=== PATIENT | male | born 1980 | race Caucasian/White ===

== ENCOUNTER 2016-08-11 09:32 | Emergency (ER) | payer SELFPAY ==
[2016-08-11 09:38] VITALS: BP 151/77
--- NOTE | 2016-08-11 11:14 | UC ---
Rito De Guzman Benjamin, scribed for Joi Andre DO on 08/11/16 at 1004 . Abdominal Pain Male HPI - HPI Summary HPI Summary: 35yo male c/o abdominal pain that started umbilical area than radiated to RLQ for 2 days. Pt states that toad bump worsens and cold milk and lying down helps his pain. Pain fluctuates btw 3 and 8 at times. Now at 1/10 pain supine, 3/10 standing. Pt vomited x6 yesterday, without any blood or bile. No bm for couple days. Also reports slight SOB. Negative PMHx and FHx. - History of Current Complaint Chief Complaint: UCAbdominalPain Stated Complaint: ABDOMINAL PAIN Hx Obtained From: Patient Onset/Duration: Sudden Onset, Lasting Days, Still Present Timing: Constant Severity Initially: Moderate Severity Currently: Mild Pain Intensity: 1 Pain Scale Used: 0-10 Numeric Location: Discrete At: RLQ Radiates: No Character: Sharp Aggravating Factor(s):: Movement - road bumps Alleviating Factor(s): Position - lying down Associated Signs And Symptoms: Positive: Constipation, Nausea, Vomiting. Negative: Diaphoresis, Fever, Dizzy, Back Pain, Blood in Stool, Urinary Symptoms - Allergies/Home Medications Allergies/Adverse Reactions: Allergies Allergy/AdvReac Type Severity Reaction Status Date / Time No Known Allergies Allergy Verified 08/11/16 09:38 Home Medications: Home Medications NK [No Home Medications Reported] 08/11/16 [History Confirmed 08/11/16] PMH/Surg Hx/FS Hx/Imm Hx Previously Healthy: Yes - Surgical History Surgical History: None - Family History Known Family History: Positive: Other - NONCONTRIBUTORY Negative: Cardiac Disease, Hypertension, Diabetes - Social History Occupation: Employed Full-time Lives: With Family Alcohol Use: Rare Substance Use Type: None Smoking Status (MU): Current Some Day Smoker Type: Smokeless Tobacco Cessation Counseling: Patient Advised to Stop - Immunization History Most Recent Influenza Vaccination: NEVER Most Recent Tetanus Shot: UTD Review of Systems Constitutional: Negative Skin: Negative Eyes: Negative ENT: Negative Respiratory: Negative Cardiovascular: Negative Gastrointestinal: Abdominal Pain - RLQ, Vomiting Genitourinary: Negative Motor: Negative Neurovascular: Negative Musculoskeletal: Negative Neurological: Negative Psychological: Negative All Other Systems Reviewed And Are Negative: Yes Physical Exam Triage Information Reviewed: Yes Appearance: Well-Appearing, Well-Nourished, Pain Distress - min Vital Signs: Initial Vital Signs Temp 97.2 F 08/11/16 09:34 Pulse 88 08/11/16 09:34 Resp 16 08/11/16 09:34 BP 151/77 08/11/16 09:34 Pulse Ox 99 08/11/16 09:34 Vital Signs Reviewed: Yes Eyes: Positive: Conjunctiva Clear. Negative: Discharge ENT: Positive: Hearing grossly normal. Negative: Muffled/hoarse voice Neck exam: Normal Neck: Positive: Supple Respiratory: Positive: Lungs clear, Normal breath sounds, No respiratory distress, No accessory muscle use Cardiovascular: Positive: RRR, No Murmur Abdomen Description: Positive: No Organomegaly, Soft, Guarding, McBurney's Point Tenderness - mild, Peritoneal Signs, Other: - rebound. Negative: CVA Tenderness (R), CVA Tenderness (L), Distended Bowel Sounds: Positive: Present Musculoskeletal: Positive: Strength Intact, ROM Intact Neurological: Positive: Alert, Muscle Tone Normal Psychological: Positive: Age Appropriate Behavior Skin Exam: Normal, Other - warm, dry, normal color Abd Pain Male Course/Dx - Course Course Of Treatment: Recommended transfer via ambulance, and after explaining the potential risks, pt still desires to transfer via private car AMA, understanding the risks. - Differential Dx/Clinical Impression Differential Diagnosis/HQI/PQRI: Appendicitis, Constipation, Gall Bladder Disease, Urinary Tract Infection Provider Diagnoses: abd pain - r/o appy Discharge - Discharge Plan Condition: Stable Disposition: AGAINST MEDICAL ADVICE Referrals: Kamlesh Kennedy MD [Primary Care Provider] - The documentation as recorded by the Rito medina Benjamin accurately reflects the service I personally performed and the decisions made by , Joi Andre DO.
== END 2016-08-11 10:09 | disposition left against medical advice (07) ==
LOC: UCEAST 09:32
DX: R10.31 Right lower quadrant pain (principal); Z72.0 Tobacco use
CPT/HCPCS: 99212; G0463

== ENCOUNTER 2016-08-11 10:29 | Day surgery (SDC) | payer SELFPAY ==
[2016-08-11] MEDS ORDERED: NS 0.9% 1000 ML* 1,000 ML IV ONE (10:57)
[2016-08-11 11:25] LABS: Hematocrit 49 % (42-52); Hemoglobin 16.4 g/dl (14.0-18.0); Mean Corpuscular HGB Conc 34 g/dl (31-36); Mean Corpuscular Hemoglobin 28 pg (27-31); Mean Corpuscular Volume 82 fL (80-94); Mean Platelet Volume 8 um3 (7.4-10.4); Red Blood Count 5.89 10^6/ul (4.0-5.4); Red Cell Distribution Width 14 % (10.5-15)
[2016-08-11 11:29] LABS: Add Diff/Slide Review? Slide Review Added; Comments Flag Yes
[2016-08-11 11:41] LABS: ALT 22 U/L (7-52); AST 16 U/L (13-39); Albumin 4.7 g/dL (3.2-5.2); Alkaline Phosphatase 65 U/L (34-104); Amylase 31 U/L (29-103); Anion Gap 8 mmol/L (2-11); BUN/Creatinine Ratio 11.4 (8-20); Blood Urea Nitrogen 10 mg/dL (6-24); C Reactive Protein 50.71 mg/L (< 5.00); CO2 Carbon Dioxide 28 mmol/L (22-32); Calcium 9.9 mg/dL (8.6-10.3); Chloride 98 mmol/L (101-111); EGFR African American 127.5 (>60); EGFR Non-African American 99.1 (>60); Globulin 3.7 g/dL (2-4); Glucose 109 mg/dL (70-100); Lipase < 10 U/L (11.0-82.0); Potassium 3.7 mmol/L (3.5-5.0); Sodium 134 mmol/L (133-145); Total Protein 8.4 g/dL (6.4-8.9)
[2016-08-11] MEDS ORDERED: Iohexol 300* (CONTRAST) 10 ML SDV IV ONE (12:52)
[2016-08-11 13:24] LABS: Urine Bacteria Absent (Absent); Urine Bilirubin Negative (Negative); Urine Glucose Negative (Negative); Urine Nitrite Negative (Negative)
--- NOTE | 2016-08-11 13:58 | RAD ---
Indication: Lower mid abdomen pain. Contrast: Administered 142.8 ml of OMNIPAQUE 300 mgi/ml. CT of the abdomen and pelvis was performed after oral and IV contrast ministration. Coronal and sagittal reconstructed images were obtained. Lung bases demonstrate no pleural fluid, nodules or masses. Heart is of normal size without evidence of pericardial effusion. Liver is normal in size. No focal lesions or intrahepatic ductal dilatation is noted. The gallbladder demonstrates no calcified gallstones. No pericholecystic fluid or wall thickening is identified. The pancreas demonstrates no mass or pancreatic ductal dilatation. The spleen is normal in size. The kidneys demonstrate symmetric nephrograms. There is a horseshoe kidney noted. There is a dilated appendix with appendicolith within the proximal appendix. There is thickening of the cecum with marked periappendiceal inflammation consistent with acute appendicitis. Phlegmonous changes noted. No definite formed abscess is present. No dilated loops of bowel are noted. The urinary bladder is unremarkable. No hernias are noted. No evidence of bowel obstruction is noted. IMPRESSION: Dilated appendix with marked periappendiceal infiltration of fat and some fluid. Appendicoliths is noted at the base of the appendix. Findings consistent with acute appendicitis.. Findings discussed with Dr. Rodriguez at 1354 hours.
[2016-08-11] MEDS ORDERED: Buffered Lidocaine 0.9% SYRIN* 5 ML/SYR SYRINGE INTRADERM ONE (14:24)
[2016-08-11] MEDS ORDERED: oxyCODONE/Acetamin 5/325 MG* TAB PO PRN (14:25)
[2016-08-11] MEDS ORDERED: Morphine INJ* 2 MG/ML 1 ML SYRINGE IV PRN (14:25)
[2016-08-11] MEDS ORDERED: fentaNYL* 50 MCG/ML 2 ML VIAL (100 MCG VIAL) IV PRN (14:25)
[2016-08-11] MEDS ORDERED: PROCHLORPERAZINE INJ 5 MG/ML 2 ML VIAL IV PRN (14:25)
[2016-08-11] MEDS ORDERED: Atracurium* 10 MG/ML 10 ML VIAL ONE (14:38)
[2016-08-11] MEDS ORDERED: fentaNYL* 50 MCG/ML 5 ML VIAL (250 MCG VIAL) ONE (14:38)
[2016-08-11] MEDS ORDERED: Midazolam* 1 MG/ML 5 ML VIAL (5 MG) ONE (14:39)
[2016-08-11] MEDS ORDERED: Propofol* 10 MG/ML 20 ML BTL IV PUSH ONE ×2 (14:39→17:21)
[2016-08-11] MEDS ORDERED: Succinylcholine* 20 MG/ML 10 ML VIAL ONE (14:39)
[2016-08-11] MEDS ORDERED: Lidocaine 2% PF * 5 ML VIAL ONE (14:39)
[2016-08-11] MEDS ORDERED: KETAMINE HCL* 50 MG/ML 10 ML VIAL ONE (14:39)
[2016-08-11] MEDS ORDERED: Famotidine IV* 10 MG/ML 2 ML (20 mg) ONE (14:50)
[2016-08-11] MEDS: Famotidine IV* 10 MG/ML 2 ML (20 mg) IV ONE (14:55)
[2016-08-11] MEDS ORDERED: Bupivacaine 0.25% W/EPI* 50 ML VIAL ONE (16:07)
[2016-08-11] MEDS ORDERED: Glycopyrrolate IV* 0.2 MG/ML 1 ML VIAL ONE (16:52)
[2016-08-11] MEDS ORDERED: Neostigmine Methylsulfate* 2 MG/2 ML SYRINGE ONE (16:52)
[2016-08-11] MEDS ORDERED: Dexamethasone IV* 4 MG/ML 1 ML (4 MG) ONE (16:52)
[2016-08-11] MEDS ORDERED: Ondansetron INJ* 2 MG/ML VIAL ONE (16:52)
[2016-08-11] MEDS ORDERED: Ketorolac INJ* 30 MG/ML 1 ML VIAL ONE (17:29)
[2016-08-11] MEDS ORDERED: Flumazenil* 0.1 MG/ML 5 ML MDV ONE (17:32)
--- NOTE | 2016-08-11 18:46 | HP ---
CC: Esdras Boyd MD, [facility] ADMISSION PREOPERATIVE HISTORY AND PHYSICAL: DATE OF ADMISSION: 08/11/16 This patient was admitted from the emergency room on , 08/11/16. ATTENDING PROVIDER: Dr. Boyd (DICTATED BY YULISA POWERS NP) CHIEF COMPLAINT: Worsening abdominal pain. HISTORY OF PRESENT ILLNESS: The patient is a 35-year-old male who states that he has had 2 days of periumbilical pain that radiated to the right lower quadrant of the abdomen and was associated with increased pain with any movement. He rates the abdominal pain between 8 and 10. He had multiple episodes of vomiting yesterday. His last bowel movement was 2 days ago; he denies any dysuria or diarrhea. He denies any previous similar episodes and has never had abdominal surgery. His last intake of solid food was yesterday and he had fluids at 10 o' clock this morning. He presented to the [facility] and was referred to the emergency room at [facility] for further evaluation. He underwent a CAT scan of the abdomen and pelvis which was consistent with acute appendicitis. His white blood cell count was elevated at 20 with a CRP of 50. Dr. Boyd has examined the patient and has recommended laparoscopic appendectomy today and has described the nature of the surgical procedure, the rationale for the procedure, the relevant risks and benefits, and the typical postoperative care and recovery. The patient has had a chance to ask questions and has signed surgical consent. PAST MEDICAL HISTORY: Generally healthy. No acute or chronic conditions. PAST SURGICAL HISTORY: None. MEDICATIONS: None currently. ALLERGIES: No known drug allergies. FAMILY HISTORY: No gastrointestinal conditions known. No anesthesia complications, clotting disorders or bleeding tendencies known. SOCIAL HISTORY: He is and has 2 children; he is employed as a [employer] ; he chews tobacco and is a former smoker and rarely drinks alcohol and denies the use of other substances. REVIEW OF SYSTEMS: Constitutional: No recent viral illnesses. Cardiovascular : No chest pain, pressure, palpitations or syncopal episodes. Respiratory: No cough. No dyspnea on exertion. Gastrointestinal: As described in history of present illness. No history of ulcerative colitis, diverticulitis or stomach ulcers. Genitourinary: Denies dysuria. No history of kidney stones. Musculoskeletal: No conditions or complaints. Neurologic: No conditions or complaints. No history of deep vein thrombosis or pulmonary embolism. No bleeding tendencies and has never received a blood transfusion. PHYSICAL EXAMINATION GENERAL: The patient is a 35-year-old male overweight, well developed, in no acute distress. VITAL SIGNS: Height 6 feet, weight 235 pounds, body mass index 32. Blood pressure 150/78, pulse 89 and regular, respiratory rate 18, temperature 99.1 tympanic, O2 saturation 97% on room air. HEENT: Benign. NECK: Supple. No cervical lymphadenopathy. BACK: No CVA tenderness. LUNGS: Breath sounds bilaterally clear and equal. HEART: Regular rate and rhythm. No murmurs or rubs appreciated. ABDOMEN: Obese, quiet, soft, exquisitely tender in the right lower quadrant. Positive guarding. No obvious ventral hernias but exam is limited by pain. EXTREMITIES: Warm with full range of motion. No edema or skin ulcerations. GENITALIA AND RECTAL: Deferred. NEUROLOGIC: Alert and oriented x3. Steady gait. SKIN: Warm, dry, intact. LABORATORY VALUES: Electrolytes are within normal limits other than chloride being low at 98. White blood cell count 20, CRP 50.7. CT scan of the abdomen and pelvis consistent with acute appendicitis. IMPRESSION: Acute appendicitis. PLAN: Per Dr. Boyd to the OR today for a laparoscopic appendectomy. Dr. Boyd discussed the nature of the surgical procedure, the rationale for the procedure. The relevant risks, benefits and typical postoperative recovery were discussed with the patient. His questions were answered and surgical consent was obtained. TIME SPENT: 45 minutes with greater than 50% in [id number] history taking and the patient education. YULISA POWERS, MAL [id number]/[facility] #: [id number] [place]
[2016-08-11 18:54] VITALS: BP 149/71
--- NOTE | 2016-08-12 05:43 | OP ---
CC: Dr. Boyd; Dr. Leobardo Kennedy OPERATIVE REPORT: DATE OF OPERATION: 08/11/16 DATE OF : 82 SURGEON: Esdras Boyd MD UNION ORGANIZER: None. ANESTHESIOLOGIST: Dr. Grewal. ANESTHESIA: General anesthetic, local infiltration. PRE-OP DIAGNOSIS: Acute appendicitis. POST-OP DIAGNOSIS: Acute appendicitis. OPERATIVE PROCEDURE: Laparoscopic appendectomy. DESCRIPTION OF PROCEDURE: Patient was supine on the operating table. After adequate general anesth etic, compression stockings, Wellington-Hugger warmer, and intravenous antibiotics, the abdomen was clippe d and prepped with antiseptic, draped in a sterile fashion. Local infiltrative anesthesia was admin istered. Small umbilical incision was created. Blunt port cannula was placed. Insufflation was car ried out with carbon dioxide. Additional cannulae 5 mm left lower quadrant, left mid abdomen were p laced through small stab wounds under direct vision. The appendix was acutely inflamed and suppurat honorio and stuck down on the retroperitoneum. With some difficulty, it was eventually dissected free. The base of appendix was divided using an EndoGIA stapler, 60 mm quiñones cartridge, and the mesoappendi x was divided using a granado load of the EndoGIA stapler. The appendix was placed in a retrieval bag and brought out through the umbilical site. The operative field was irrigated with warm saline solu tion. Free fluid was suctioned out. Hemostasis was good. The cannulae were removed. Pneumoperito neum allowed to escape. Umbilical fascia was closed with 0 Polysorb, skin with 5-0 Polysorb followe d by Steri-Strips. He tolerated the procedure well, was awakened and brought to recovery in good co ndition. No complications. No drains. Pathologic specimen, appendix. Sponge and instrument count s correct. Estimated blood loss 10 mL. [id number]/[facility] #: [id number]
--- NOTE | 2016-08-12 09:03 | ED ---
Ariel De Guzman Alfonso, scribed for Braulio Jarquin MD on 08/11/16 at 1110 . Abdominal Pain/Male - HPI Summary HPI Summary: This patient is a 35 y.o M presenting to [facility] with abdominal pain since two nights ago. Pain is sharp, RLQ pain without radiation. He was referred to the ED after an urgent care visit earlier today. The pain severity is moderate, but described as not bad right now. Patient reports chills, nausea, constipation and vomiting yesterday. He denies fever. Sx aggravated and alleviated by nothing. No PMHx or PSHx reported. - History of Current Complaint Chief Complaint: EDAbdPain Stated Complaint: ABDOMINAL PAIN Time Seen by Provider: 08/11/16 10:56 Hx Obtained From: Patient Onset/Duration: Sudden Onset, Lasting Days - 2 days, Still Present Timing: Constant Severity Initially: Moderate Severity Currently: Moderate Pain Intensity: 5 Pain Scale Used: 0-10 Numeric Location: Discrete At: RLQ Radiates: No Character: Sharp Aggravating Factor(s): Nothing Alleviating Factor(s): Nothing Associated Signs And Symptoms: Positive: Constipation, Nausea - Yesterday, Vomiting - Yesterday, Other - Chills yesterday. Negative: Fever - Allergies/Home Medications Allergies/Adverse Reactions: Allergies Allergy/AdvReac Type Severity Reaction Status Date / Time No Known Allergies Allergy Verified 08/11/16 09:38 PMH/Surg Hx/FS Hx/Imm Hx Endocrine/Hematology History: Denies: Hx Diabetes Cardiovascular History: Denies: Hx Hypertension Respiratory History: Denies: Hx Chronic Obstructive Pulmonary Disease (COPD) Infectious Disease History: No Infectious Disease History: Denies: Hx Hepatitis, History Other Infectious Disease, Traveled Outside the [place] in Last 30 Days - Family History Known Family History: Negative: Hypertension, Diabetes - Social History Alcohol Use: Rare Substance Use Type: Reports: None Smoking Status (MU): Former Smoker Type: Smokeless Tobacco Review of Systems Positive: Chills. Negative: Fever Positive: Abdominal Pain, Vomiting, Nausea, Other - Positive constipation All Other Systems Reviewed And Are Negative: Yes Physical Exam - Summary Physical Exam Summary: VITAL SIGNS: Reviewed. GENERAL: Patient is a well-developed and nourished male who is lying comfortable in the stretcher. Patient is not in any acute respiratory distress. HEAD AND FACE: Normocephalic and atraumatic. EYES: PERRLA, EOMI x 2, No injected conjunctiva. EARS: Hearing grossly intact. Ear canals and tympanic membranes are WNL. MOUTH: Oropharynx within normal limits. NECK: Supple, trachea is midline, no adenopathy, no JVD. CHEST: Symmetric, no tenderness at palpation LUNGS: Clear to auscultation bilaterally. No wheezing or crackles. CVS: RRR, S1 and S2 present, no murmurs or gallops appreciated. ABDOMEN: Soft. RLQ tenderness with guarding and rebounding. EXTREMITIES: FROM in all major joints, no edema, no cyanosis or clubbing. NEURO: Alert and oriented x 3. No acute neurological deficits. Speech is normal. SKIN: Dry and warm Triage Information Reviewed: Yes Vital Signs On Initial Exam: Initial Vitals Temp Pulse Resp BP Pulse Ox 98.3 F 95 20 151/84 100 08/11/16 10:37 08/11/16 10:37 08/11/16 10:37 08/11/16 10:37 08/11/16 10:37 Vital Signs Reviewed: Yes - Sumit Coma Scale Coma Scale Total: 15 Diagnostics - Vital Signs Vital Signs Temp Pulse Resp BP Pulse Ox 08/11/16 10:41 98.3 F 95 20 151/84 99 08/11/16 10:37 98.3 F 95 20 151/84 100 - Laboratory Lab Results: Lab Results 08/11/16 08/11/16 08/11/16 Range/Units 11:05 11:05 11:05 WBC 20.0 H (3.5-10.8) 10^3/ul RBC 5.89 H (4.0-5.4) 10^6/ul Hgb 16.4 (14.0-18.0) g/dl Hct 49 (42-52) % MCV 82 (80-94) fL MCH 28 (27-31) pg MCHC 34 (31-36) g/dl RDW 14 (10.5-15) % Plt Count 251 (150-450) 10^3/ul MPV 8 (7.4-10.4) um3 Neut % (Auto) 80.8 (38-83) % Lymph % (Auto) 5.8 L (25-47) % [place] % (Auto) 13.1 H (1-9) % Eos % (Auto) 0.1 (0-6) % Baso % (Auto) 0.2 (0-2) % Absolute Neuts (auto) 16.2 H (1.5-7.7) 10^3/ul Absolute Lymphs (auto) 1.2 (1.0-4.8) 10^3/ul Absolute Monos (auto) 2.6 H (0-0.8) 10^3/ul Absolute Eos (auto) 0 (0-0.6) 10^3/ul Absolute Basos (auto) 0 (0-0.2) 10^3/ul Absolute Nucleated RBC 0.01 10^3/ul Nucleated RBC % 0 Sodium 134 (133-145) mmol/L Potassium 3.7 (3.5-5.0) mmol/L Chloride 98 L (101-111) mmol/L Carbon Dioxide 28 (22-32) mmol/L Anion Gap 8 (2-11) mmol/L BUN 10 (6-24) mg/dL Creatinine 0.88 (0.67-1.17) mg/dL Est GFR ( Amer) 127.5 (>60) Est GFR (Non-Af Amer) 99.1 (>60) BUN/Creatinine Ratio 11.4 (8-20) Glucose 109 H (70-100) mg/dL Lactic Acid 1.7 (0.5-2.0) mmol/L Calcium 9.9 (8.6-10.3) mg/dL Total Bilirubin 0.80 (0.2-1.0) mg/dL AST 16 (13-39) U/L ALT 22 (7-52) U/L Alkaline Phosphatase 65 (34-104) U/L C-Reactive Protein 50.71 H (< 5.00) mg/L Total Protein 8.4 (6.4-8.9) g/dL Albumin 4.7 (3.2-5.2) g/dL Globulin 3.7 (2-4) g/dL Albumin/Globulin Ratio 1.3 (1-3) Amylase 31 (29-103) U/L Lipase < 10 L (11.0-82.0) U/L Urine Color Urine Appearance Urine pH (5-9) Ur Specific [place] (1.010-1.030) Urine Protein (Negative) Urine Ketones (Negative) Urine Blood (Negative) Urine Nitrate (Negative) Urine Bilirubin (Negative) Urine Urobilinogen (Negative) Ur Leukocyte Esterase (Negative) Urine WBC (Auto) (Absent) Urine RBC (Auto) (Absent) Ur Squamous Epith Cells (Absent) Urine Bacteria (Absent) Urine Glucose (Negative) 08/11/16 Range/Units 12:46 WBC (3.5-10.8) 10^3/ul RBC (4.0-5.4) 10^6/ul Hgb (14.0-18.0) g/dl Hct (42-52) % MCV (80-94) fL MCH (27-31) pg MCHC (31-36) g/dl RDW (10.5-15) % Plt Count (150-450) 10^3/ul MPV (7.4-10.4) um3 Neut % (Auto) (38-83) % Lymph % (Auto) (25-47) % [place] % (Auto) (1-9) % Eos % (Auto) (0-6) % Baso % (Auto) (0-2) % Absolute Neuts (auto) (1.5-7.7) 10^3/ul Absolute Lymphs (auto) (1.0-4.8) 10^3/ul Absolute Monos (auto) (0-0.8) 10^3/ul Absolute Eos (auto) (0-0.6) 10^3/ul Absolute Basos (auto) (0-0.2) 10^3/ul Absolute Nucleated RBC 10^3/ul Nucleated RBC % Sodium (133-145) mmol/L Potassium (3.5-5.0) mmol/L Chloride (101-111) mmol/L Carbon Dioxide (22-32) mmol/L Anion Gap (2-11) mmol/L BUN (6-24) mg/dL Creatinine (0.67-1.17) mg/dL Est GFR ( Amer) (>60) Est GFR (Non-Af Amer) (>60) BUN/Creatinine Ratio (8-20) Glucose (70-100) mg/dL Lactic Acid (0.5-2.0) mmol/L Calcium (8.6-10.3) mg/dL Total Bilirubin (0.2-1.0) mg/dL AST (13-39) U/L ALT (7-52) U/L Alkaline Phosphatase (34-104) U/L C-Reactive Protein (< 5.00) mg/L Total Protein (6.4-8.9) g/dL Albumin (3.2-5.2) g/dL Globulin (2-4) g/dL Albumin/Globulin Ratio (1-3) Amylase (29-103) U/L Lipase (11.0-82.0) U/L Urine Color Yellow Urine Appearance Cloudy Urine pH 6.0 (5-9) Ur Specific [place] 1.021 (1.010-1.030) Urine Protein 1+(30 mg/dl) H (Negative) Urine Ketones Negative (Negative) Urine Blood Negative (Negative) Urine Nitrate Negative (Negative) Urine Bilirubin Negative (Negative) Urine Urobilinogen Negative (Negative) Ur Leukocyte Esterase Negative (Negative) Urine WBC (Auto) Trace(0-5/hpf) (Absent) Urine RBC (Auto) Absent (Absent) Ur Squamous Epith Cells Present H (Absent) Urine Bacteria Absent (Absent) Urine Glucose Negative (Negative) Result Diagrams: 08/11/16 11:05 08/11/16 11:05 Lab Statement: Any lab studies that have been ordered have been reviewed, and results considered in the medical decision making process. - CT CT A/P CT Interpretation: Positive (See Comments) - Dilated appendix with marked periappendiceal infiltration of fat and some fluid. Appendicoliths is noted at the base of the appendix. Findings consistent with acute appendicitis. CT Interpretation Completed By: Radiologist Abdominal Pain Fem Course/Dx - Course Course Of Treatment: This patient is a 35 y.o M presenting to [facility] with abdominal pain since two nights ago. Pain is sharp, RLQ pain without radiation. He was referred to the ED after an urgent care visit earlier today. The pain severity is moderate, but described as not bad right now. Patient reports chills, nausea, constipation and vomiting yesterday. He denies fever. Sx aggravated and alleviated by nothing. No PMHx or PSHx reported. Assessment/Plan: Test results show that patient has WBC of 20. CRP of 50. Urine shows no UTI and abdominal/pelvic CT shows positive for appendicitis. I discussed the case with Dr. Boyd and he accepts the patient for admission. I did not start the patient on antibiotics or aspirin, per Dr. Boyd. Pt is hemodynamically stable and AxOx3. - Diagnoses Differential Diagnosis/HQI/PQRI: Appendicitis, Bowel Obstruction, Constipation, Diverticulitis Provider Diagnoses: Acute appendicitis - Provider Notifications Discussed Care Of Patient With: Esdras Boyd - Agrees to admit patient for atypical chest pain Time Discussed With Above Provider: 14:15 Discharge - Discharge Plan Condition: Stable Disposition: ADMITTED TO [facility] The documentation as recorded by the Ariel medina Alfonso accurately reflects the service I personally performed and the decisions made by me, Braulio Jarquin MD.
== END 2016-08-11 20:21 | disposition home or self-care (01) ==
LOC: ED 10:29 → OR 16:53
PROVIDERS: ATTEND Surgery
DX: K35.2 Acute appendicitis with generalized peritonitis (principal); Z72.0 Tobacco use
CPT/HCPCS: 36415; 74177; 80053; 81003; 81015; 82150; 83605; 83690; 85025; 86140; 88304; J0330; J1100; J1885; J2250; J2405; J2543; J2704; J3010; Q9967

== ENCOUNTER 2017-10-06 18:00 | Emergency (ER) | payer SELFPAY ==
[2017-10-06 18:15] VITALS: BP 155/79
--- NOTE | 2017-10-06 18:32 | UC ---
Complaint Male HPI - HPI Summary HPI Summary: This is [facility] documenting for presenting Braulio Jarquin MD. Pt is a 36 y/o M c/o suprapubic discomfort onset last night. Pain is located in the penile region and rated a 5/10, per comp. assessment. Assoc. Sx: dysuria, increased urgency. Has had a UTI previously and notes that this feels very similar to previous episode. PMHx: appendicitis. FHx: denies DM. SHx: chews tobacco, no EtOH. - History of Current Complaint Chief Complaint: UCGU Stated Complaint: BURNING URINATION Time Seen by Provider: 10/06/17 18:26 Hx Obtained From: Patient Onset/Duration: Sudden Onset, Lasting Days Timing: Constant Severity Currently: Moderate Pain Intensity: 5 Pain Scale Used: 0-10 Numeric Character: Burning Alleviating Factor(s): Nothing Associated Signs And Symptoms: Positive: Dysuria - Allergies/Home Medications Allergies/Adverse Reactions: Allergies Allergy/AdvReac Type Severity Reaction Status Date / Time No Known Allergies Allergy Verified 10/06/17 18:15 PMH/Surg Hx/FS Hx/Imm Hx Other Endocrine History: NEG: DM Other Cardiovascular History: NEG: CAD - Surgical History Surgical History: Yes Surgery Procedure, Year, and Place: 2016 - Family History Known Family History: Positive: Other - NONCONTRIBUTORY Negative: Cardiac Disease, Hypertension, Diabetes - Social History Occupation: Employed Full-time Lives: With Family Alcohol Use: Weekly Substance Use Type: None Smoking Status (MU): Former Smoker Type: Smokeless Tobacco - Immunization History Most Recent Influenza Vaccination: NEVER Most Recent Tetanus Shot: UTD Review of Systems Respiratory: Other - NEG: SOB Genitourinary: Urgency - increased, Vaginal/Penile Burning - dysuria All Other Systems Reviewed And Are Negative: Yes Physical Exam - Summary Physical Exam Summary: VITAL SIGNS: Reviewed. GENERAL: Patient is a well-developed and nourished Male who is lying comfortable in the stretcher. Patient is not in any acute respiratory distress. HEAD AND FACE: Normocephalic EYES: PERRLA, EOMI x 2. EARS: Hearing grossly intact. MOUTH: Oropharynx within normal limits. NECK: Supple, trachea is midline, no adenopathy, no JVD, no carotid bruit. CHEST: Symmetric, no tenderness at palpation LUNGS: Clear to auscultation bilaterally. No wheezing or crackles. CVS: Regular rate and rhythm, S1 and S2 present, no murmurs or gallops appreciated. ABDOMEN: Soft, non-tender. Bowel sounds are normal. No abdominal abnormal pulsations. EXTREMITIES: Full ROM in all major joints, no edema, no cyanosis or clubbing. NEURO: Alert and oriented x 3. No acute neurological deficits. Speech is normal and follows commands. SKIN: Dry and warm Triage Information Reviewed: Yes Vital Signs: Initial Vital Signs Temp 99.7 F 10/06/17 18:11 Pulse 91 10/06/17 18:11 Resp 18 10/06/17 18:11 BP 155/79 10/06/17 18:11 Pulse Ox 100 10/06/17 18:11 Vital Signs Reviewed: Yes Complaint Male Course/Dx - Course Course Of Treatment: Patient is a 36-year-old male who presents to the urgent care with chief complaint of having dysuria, urinary frequency. Urinalysis shows positive leukocytes. Patient will be given position for ciprofloxacin and she will referred to urologist because his second and he has a urinary tract infection. Patient is hemodynamically stable alert and oriented 3. He was instructed to the emergency room he develops any more pain, fevers, nausea vomiting. He understands and agrees. - Differential Dx/Diagnosis Provider Diagnoses: UTI Discharge - Sign-Out/Discharge Documenting (check all that apply): Patient Departure - Discharge Plan Condition: Stable Disposition: HOME Prescriptions: Ciprofloxacin TAB* [Cipro 500 MG TAB*] 500 mg PO BID #14 tab Patient Education Materials: Urinary Tract Infection in Men (ED) Referrals: Kamlesh Kennedy MD [Primary Care Provider] - Frederick Gtz MD [Medical Doctor] - Additional Instructions: Take medications as instructed and adhere to plan Take Acetaminophen or ibuprofen for pain or fever Increase your fluid intake Return to the or go to the emergency department if symptoms worsen Follow-up with primary care physician in next 2-3 days - Billing Disposition and Condition Condition: STABLE Disposition: Home
--- NOTE | 2017-10-08 22:04 | UC ---
- Progress Note Progress Note: 10/08/2017 Pt Dx UTI, and Rx Ciprofloxacin PO. Urine culture positive for Encterobacter Aerogenes. Awaiting for final sensitivity report. Britney Altman PA-C Discharge - Sign-Out/Discharge Documenting (check all that apply): Patient Departure - D/C home - Discharge Plan Condition: Stable Disposition: HOME Prescriptions: Ciprofloxacin TAB* [Cipro 500 MG TAB*] 500 mg PO BID #14 tab Patient Education Materials: Urinary Tract Infection in Men (ED) Referrals: Kamlesh Kennedy MD [Primary Care Provider] - Frederick Gtz MD [Medical Doctor] - Additional Instructions: Take medications as instructed and adhere to plan Take Acetaminophen or ibuprofen for pain or fever Increase your fluid intake Return to the UC or go to the emergency department if symptoms worsen Follow-up with primary care physician in next 2-3 days - Billing Disposition and Condition Condition: STABLE Disposition: Home
--- NOTE | 2017-10-09 16:57 | UC ---
- Progress Note Progress Note: Urine final with sns to cipro - no change Discharge - Sign-Out/Discharge Documenting (check all that apply): Post-Discharge Follow Up - Discharge Plan Condition: Stable Disposition: HOME Prescriptions: Ciprofloxacin TAB* [Cipro 500 MG TAB*] 500 mg PO BID #14 tab Patient Education Materials: Urinary Tract Infection in Men (ED) Referrals: Kamlesh Kennedy MD [Primary Care Provider] - Frederick Gtz MD [Medical Doctor] - Additional Instructions: Take medications as instructed and adhere to plan Take Acetaminophen or ibuprofen for pain or fever Increase your fluid intake Return to the UC or go to the emergency department if symptoms worsen Follow-up with primary care physician in next 2-3 days - Billing Disposition and Condition Condition: STABLE Disposition: Home
== END 2017-10-06 18:56 | disposition home or self-care (01) ==
LOC: UCEAST 18:00
DX: N39.0 Urinary tract infection, site not specified (principal); B96.89 Other specified bacterial agents as the cause of diseases classified elsewhere; Z87.891 Personal history of nicotine dependence
CPT/HCPCS: 81003; 87077; 87086; 87186; 99212; G0463